=== PATIENT | male | born 1970 | race Caucasian/White ===

== ENCOUNTER 2022-05-24 11:19 | Outpatient (REF) | payer OTHER, SELFPAY ==
[2022-05-24 13:33] LABS: Hematocrit 48.4 % (42.0-52.0); Hemoglobin 16.9 g/dl (14.0-18.0); Mean Corpuscular HGB Conc 34.9 g/dl (31.0-36.0); Mean Corpuscular Hemoglobin 30.8 pg (27.0-33.0); Mean Corpuscular Volume 88.2 fL (80.0-98.0); Mean Platelet Volume 9.4 fL (9.4-12.4); Platelet Count 227 X10*3/uL (160-400); Red Blood Count 5.49 X10*6/uL (4.60-5.80); White Blood Count 5.5 X10*3/uL (4.8-10.8)
[2022-05-24 13:41] LABS: Alanine Aminotransferase 29 U/L (0-40); Albumin Level 4.1 g/dL (3.5-5.0); Alkaline Phosphatase 56 U/L (39-117); Anion Gap 13 (12-20); Aspartate Amino Transferase 24 U/L (5-37); Bilirubin Total 0.2 mg/dL (0.0-1.0); Blood Urea Nitrogen 13 mg/dL (9-16); Calcium 9.2 mg/dL (8.4-10.2); Carbon Dioxide 25 mmol/L (22-29); Chloride 103 mmol/L (96-108); Cholesterol 182 mg/dL; Estimated Glomerular Filt Rate > 60; Glucose Fasting 98 mg/dL (60-99); HDL Cholesterol 48 mg/dL; LDL Cholesterol Calculated 109 mg/dl; Potassium 4.6 mmol/L (3.3-5.1); Sodium 136 mmol/L (135-145); Triglycerides 125 mg/dL
[2022-05-24 14:01] LABS: TSH reflex Free T4 3.02 uIU/mL (0.32-4.0)
== END 2022-05-24 11:20 | disposition home or self-care (01) ==
LOC: HO.WFDLDS 11:19
PROVIDERS: Visit Provider Hospitalist
DX: Z00.00 Encounter for general adult medical examination without abnormal findings (principal)
CPT/HCPCS: 36415; 80053; 80061; 84443; 85027

== ENCOUNTER 2024-03-05 13:37 | Outpatient (AMB) | payer OTHER, SELFPAY ==
--- NOTE | 2024-03-05 14:00 | A.OFFPC_ITS ---
Vital Signs 03/05/24 14:08 Height 5 ft 9 in Weight 228 lb 6 oz BMI 33.7 BP 112/64 Blood Pressure Location Lt brachial Position Sitting Respiration 16 Pulse 83 Pulse Source Pulse Oximeter Temp 98.7 F Temp Source Oral Pulse Oximetry (%) 93 Oxygen Delivery Method Room Air Intake Visit Reasons: Est Care, transfer from [facility] Note: New patient visit. Fatigue often. Route Delivery Manager Required: No Allergies No Known Allergies [No Known Allergies*] Allergy (Verified 03/05/24 14:01) Medication List - Last Reconciled 03/05/24 by Lory Cameron MD levothyroxine 224 mcg (2 x 112 mcg) PO DAILY 90 days lisinopril 5 mg PO DAILY 90 days rosuvastatin 5 mg PO DAILY 90 days Tobacco use date assessed: 03/05/24 Dental Screening Dental Screen Date: 03/05/24 Did you have a dental visit in the last 12 months?: Yes Did you have a dental problem in the last 6 months where you did not have access to dental care?: No Was dental information given to patient?: No (Patient will find new one, his last dentist retired) HPI HPI Comments History of Present Illness Details 53 year old male with a past medical of hypertension, hyperlipidemia, hypothyroid presenting to [facility] care CV: On lisinopril 5 mg daily, rosuvastatin 5mg daily. BPH: Gets up one time nightly to urinate. Not restricting fluids. This has been stable Hypothyroid: On levothyroxine 224mcg daily. Feels more tired for the past year or two. Sleeping ~7 hours. Not gasping arousals. Snores but chronic. Had sleep ctr testing ~10 years ago which was negative for apnea Has not had colon cancer screening. Was scheduled for colonoscopy at one point but cancelled [facility] Surgical History (Updated 03/05/24 @ 14:08 by Lilliana Ayala CMA) H/O: vasectomy Family History (Updated 03/05/24 @ 14:08 by Lilliana Ayala CMA) Brother No problems noted. 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 ) Vision needs: Yes (computer and reading glasses ) Questionnaire PHQ-9 Over the last 2 weeks, how often have you been bothered by any of the following problems? 1. Little interest or pleasure in doing things: several days 2. Feeling down, depressed, or hopeless: not at all 3. Trouble falling or staying asleep, or sleeping too much: several days 4. Feeling tired or having little energy: more than half the days 5. Poor appetite or overeating: not at all 6. Feeling bad about yourself - or that you are a failure or have let yourself or your family down: not at all 7. Trouble concentrating on things, such as reading the newspaper or watching television: not at all 8. Moving or speaking so slowly that other people could have noticed. Or the opposite - being so fidgety or restless that you have been moving around a lot more than usual: not at all 9. Thoughts that you would be better off or of hurting yourself in some way: not at all Total score: 4 Depression Screening Interpretation: Positive (patient endorses sleepiness not depression) Depression Screening Done: Yes 21310 - PHQ-9 Billing: Yes Source: Developed by Drs. Emanuel Rees, Jaja Blanchard, Tang Jones and colleagues, with an educational bonifacio from [email or web address]. Thrive Questionnaire Date Thrive assessed: 03/05/24 I am a: Patient What is your living situation today?: I have a steady place to live Within the past 12 months, did the food you bought not last and you didn't have the money to get more?: Never true Within the past 12 months, did you worry whether your food would run out before you got money to buy more?: Never true Do you have trouble paying for medicines?: No Do you have trouble getting transportation to medical appointments?: No Do you have trouble paying your heating and electricity bill?: No Do you have trouble taking care of your child, family member or friend?: No Do you have trouble with day-to-day activities such as bathing, preparing meals, shopping, managing finances, etc.?: No Are you currently unemployed and looking for a job?: No Are you interested in more education?: No Please select the resources that you would like help with: None Currently or been in a relationship where the following occur: no concerns reported THRIVE Score: 0 SHARI-7 AMB Questionnaire SHARI-7 Date SHARI - 7 assessed: 03/05/24 Feeling nervous, anxious, or on edge: 0 = Not at all Not being able to stop or control worryin = Not at all Worrying too much about different things: 0 = Not at all Trouble relaxin = Not at all Being so restless that it is hard to sit still: 0 = Not at all Becoming easily annoyed or irritable: 0 = Not at all Feeling afraid as if something awful might happen: 0 = Not at all Total SHARI-7 score (0-4 normal; 5-9 mild; 10-14 moderate; 15-21 severe): 0 Source: Developed by Drs. Emanuel Rees, Jaja Blanchard, Tang Jones and colleagues, with an educational bonifacio from [email or web address]. SHARI-7 Assessment Billing SHARI-7 Assessment Tool: SHARI-7 Assessment 75755 Review of Systems Const Details: see HPI Physical exam (Primary Care) Vital Signs: Last Vital Signs Temp 98.7 F 03/05/24 14:08 Pulse 83 03/05/24 14:08 Resp 16 03/05/24 14:08 BP 112/64 03/05/24 14:08 Pulse Ox 93 03/05/24 14:08 Oxygen Delivery Method Room Air 03/05/24 14:08 PHYSICAL EXAM: GENERAL: Alert and oriented x 3. NAD EYES: EOMI. Anicteric. HENT: Moist mucous membranes. Sinus congestion LUNGS: Clear to auscultation bilaterally. CARDIOVASCULAR: Regular rate and rhythm. No murmur appreciated ABDOMEN: Soft, non-tender +bs EXTREMITIES: No edema. Non-tender. SKIN: No rashes or lesions. Warm. NEUROLOGIC: No focal neurological deficits. CN II-XII grossly intact PSYCHIATRIC: Cooperative. Appropriate mood and affect BMI result Body Mass Index 33.7 Tobacco/Smoking Status: Tobacco use Status Tobacco use date assessed 03/05/24 03/05/24 14:12 Patient Tobacco Use Status Current everyday Tobacco 03/05/24 14:12 e-Cigarette/Vaping Use Never Used 03/05/24 14:12 Depression Screening Interpretation: Positive (patient endorses sleepiness not depression) Currently or been in a relationship where the following occur: no concerns reported Assessment and Plan Assessment & Plan (1) Hypothyroidism (acquired): Comment: due for TSH. continue levothyroxine Code(s): E03.9 - Hypothyroidism, unspecified (2) Essential hypertension: Comment: Efforts toward weight loss including decrease caloric intake and regular CV exercise. Low sodium diet Code(s): I10 - Essential (primary) hypertension (3) Fatigue: Code(s): R53.83 - Other fatigue Qualifiers: Fatigue type: unspecified Qualified Code(s): R53.83 - Other fatigue (4) Screening for prostate cancer: Code(s): Z12.5 - Encounter for screening for malignant neoplasm of prostate Plan 53 year old male presenting to [facility] care. past medical, surgical, social and family history reviewed. Orders: Orders Vitamin B12 and Folate Today E03.9 - Hypothyroidism, unspecified, I10 - Essential (primary) hypertension, R53.83 - Other fatigue Prostate Specific Antigen Today Z12.5 - Encounter for screening for malignant neoplasm of prostate TSH reflex Free T4 Today E03.9 - Hypothyroidism, unspecified, I10 - Essential (primary) hypertension, R53.83 - Other fatigue Complete Blood Count Auto Diff Today E03.9 - Hypothyroidism, unspecified, I10 - Essential (primary) hypertension, R53.83 - Other fatigue Comprehensive Met. Panel Today E03.9 - Hypothyroidism, unspecified, I10 - Essential (primary) hypertension, R53.83 - Other fatigue Lipid Panel Today E03.9 - Hypothyroidism, unspecified, I10 - Essential (primary) hypertension, R53.83 - Other fatigue Lyme IgG/IgM w/reflex to WB Today E03.9 - Hypothyroidism, unspecified, I10 - Essential (primary) hypertension, R53.83 - Other fatigue Referrals Cologuard Test Z12.11 - Encounter for screening for malignant neoplasm of colon, Z12.12 - Encounter for screening for malignant neoplasm of rectum, Z12.5 - Encounter for screening for malignant neoplasm of prostate Coding Level of Care Code Est Pt Level 4 (15189) Complex EM visit Add On G2211 Diagnoses Hypothyroidism (acquired) E03.9 Essential hypertension I10 Fatigue, unspecified type R53.83 Fatigue type: unspecified Screening for prostate cancer Z12.5 Additional Codes SHARI-7 Assessment Billing - SHARI-7 Assessment Tool: SHARI-7 Assessment 99177 ([id number])
[2024-03-05 14:08] VITALS: BP 112/64; PULSE 83; RESP 16; TEMP 37.1; O2SAT 93; BMI 33.7
== END 2024-03-05 14:54 | disposition home or self-care (01) ==
PROVIDERS: PCP Hospitalist; Visit Provider Internal Medicine
DX: E03.9 Hypothyroidism, unspecified (principal); I10 Essential (primary) hypertension; R53.83 Other fatigue; Z12.5 Encounter for screening for malignant neoplasm of prostate
CPT/HCPCS: 99214; G2211

== ENCOUNTER 2024-05-30 07:30 | Outpatient (REF) | payer OTHER, SELFPAY ==
[2024-05-30 11:57] LABS: MANUAL DIFF FLAG NO
[2024-05-30 12:02] LABS: Basophils Absolute Auto 0.1 X10*3/uL (0.0-0.2); Basophils Percent Auto 1.2 % (0-2); Eosinophils Absolute Auto 0.2 X10*3/uL (0.0-0.4); Eosinophils Percent Auto 2.8 % (0-4); Hematocrit 51.3 % (42.0-52.0); Hemoglobin 17.3 g/dl (14.0-18.0); Imm Gran Abs Auto 0.02 X10*3/uL (0.00-0.03); Imm Gran Pct Auto 0.4 % (0.0-0.4); Lymphocytes Absolute Auto 1.9 X10*3/uL (1.2-4.9); Lymphocytes Percent Auto 32.5 % (20-40); Mean Corpuscular HGB Conc 33.7 g/dl (31.0-36.0); Mean Corpuscular Hemoglobin 30.1 pg (27.0-33.0); Mean Corpuscular Volume 89.4 fL (80.0-98.0); Mean Platelet Volume 9.3 fL (9.4-12.4); Monocytes Absolute Auto 0.8 X10*3/uL (0.1-1.2); Monocytes Percent Auto 13.5 % (2-11); Neutrophils Absolute Auto 2.8 x10*3/uL (2.0-8.3); Neutrophils Percent Auto 49.6 % (45-73); Platelet Count 240 X10*3/uL (160-400); Red Blood Count 5.74 X10*6/uL (4.60-5.80); Red Cell Distribution Width 13.4 % (11.0-16.0); White Blood Count 5.7 X10*3/uL (4.8-10.8)
[2024-05-30 12:39] LABS: Alanine Aminotransferase 27 U/L (0-40); Alkaline Phosphatase 52 U/L (39-117); Anion Gap 14 (12-20); Aspartate Amino Transferase 28 U/L (5-37); Bilirubin Total 0.4 mg/dL (0.0-1.0); Blood Urea Nitrogen 17 mg/dL (9-16); Calcium 9.5 mg/dL (8.4-10.2); Carbon Dioxide 25 mmol/L (22-29); Chloride 106 mmol/L (96-108); Cholesterol 179 mg/dL (<200); Estimated Glomerular Filt Rate > 60; Glucose Random 107 mg/dL (60-115); HDL Cholesterol 42 mg/dL (>40); LDL Cholesterol Calculated 101 mg/dL (<100); Potassium 4.2 mmol/L (3.3-5.1); Sodium 141 mmol/L (135-145); Total Protein 7.1 g/dL (6.5-8.0); Triglycerides 180 mg/dL (<150)
[2024-05-30 12:40] LABS: TSH reflex Free T4 16.51 uIU/mL (0.32-4.0)
[2024-05-30 12:59] LABS: Folate 9.9 ng/mL (> or = 4.0); Prostate Specific Antigen 0.46 ng/mL (<0.05-4.0); Vitamin B12 533 pg/mL (200-900)
[2024-05-30 13:29] LABS: Free T4 (Free Thyroxine) 1.16 ng/dL (0.71-1.85)
[2024-05-31 17:38] LABS: Lyme Abs Screen <0.90 index
== END 2024-05-30 07:31 | disposition home or self-care (01) ==
LOC: HO.WFDLDS 07:30
PROVIDERS: Visit Provider Internal Medicine
DX: E03.9 Hypothyroidism, unspecified (principal); I10 Essential (primary) hypertension; R53.83 Other fatigue; Z12.5 Encounter for screening for malignant neoplasm of prostate
CPT/HCPCS: 36415; 80053; 80061; 82607; 82746; 84153; 84439; 84443; 85025; 86617; 86618

== ENCOUNTER 2024-06-08 09:33 | Outpatient (AMB) | payer OTHER, SELFPAY ==
--- NOTE | 2024-06-08 09:27 | MHC.PC.OV ---
Intake Visit Reasons: Lab review Allergies No Known Allergies [No Known Allergies*] Allergy (Verified 03/05/24 14:01) Tobacco use date assessed: 03/05/24 Dental Screening Dental Screen Date: 03/05/24 HPI HPI Comments History of Present Illness Details 53 year old male with a past medical of hypertension, hyperlipidemia, hypothyroid presenting to follow up on labs Labs notable for under active thyroid on current levothyroxine dosing-currently taking 224mcg daily. He misses a few doses per month. He has been taking multivitamins including B vitamins. Feels more tired for the past year or two. Sleeping ~7 hours. Not gasping arousals. Snores but chronic. Had sleep ctr testing ~10 years ago which was negative for apnea CV: On lisinopril 5 mg daily, rosuvastatin 5mg daily. BPH: Gets up one time nightly to urinate. Not restricting fluids. This has been stable. Has not had colon cancer screening. Was scheduled for colonoscopy at one point but cancelled [facility] Surgical History (Updated 03/05/24 @ 14:08 by Lilliana Ayala CMA) H/O: vasectomy Family History (Updated 03/05/24 @ 14:08 by Lilliana Ayala CMA) Brother No problems noted. 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 ) Vision needs: Yes (computer and reading glasses ) Questionnaire Thrive Questionnaire Date Thrive assessed: 03/05/24 SHARI-7 AMB Questionnaire SHARI-7 Date SHARI - 7 assessed: 03/05/24 Source: Developed by Drs. Emanuel Rees, Jaja Blanchard, Tang Jones and colleagues, with an educational bonifacio from [employer]. Physical exam (Primary Care) Tobacco/Smoking Status: Tobacco use Status Tobacco use date assessed 03/05/24 06/08/24 09:28 Patient Tobacco Use Status Current everyday Tobacco 06/08/24 09:28 e-Cigarette/Vaping Use Never Used 06/08/24 09:28 Thrive Assessment: Date of Thrive Assessment Date Thrive assessed 03/05/24 06/08/24 09:28 Telehealth Telehealth Telehealth Platform: Telephone Location of provider rendering services: practice address Location of patient: address on file Patient Identification confirmed using: Name, : Yes Telehealth method: voice only Patient verbally consented to treatment: Yes Patient verbally consented to billing insurance company: Yes Patient informed of any privacy concerns related to visit: Yes Minutes spent on Phone/Video with Pt.: 25 Assessment and Plan Assessment & Plan (1) Hypothyroidism (acquired): Comment: due for TSH. continue levothyroxine Code(s): E03.9 - Hypothyroidism, unspecified Plan: Increase levothyroxine to 250mcg daily. Stop multivitamins 3 days prior to testing (2) Essential hypertension: Comment: Efforts toward weight loss including decrease caloric intake and regular CV exercise. Low sodium diet Code(s): I10 - Essential (primary) hypertension Orders: Orders TSH reflex Free T4 06/08/24 E03.9 - Hypothyroidism, unspecified Medications: New levothyroxine 250 mcg (2 x 125 mcg) PO DAILY 180 tabs 3RF 90 days Discontinued levothyroxine Discontinued Reason: Doctor's Order 224 mcg (2 x 112 mcg) PO DAILY 90 days 180 tabs 3RF Coding Level of Care Code Tele Est Pt Level 3 (36642) Diagnoses Hypothyroidism (acquired) E03.9 Essential hypertension I10
== END 2024-06-08 10:14 | disposition home or self-care (01) ==
LOC: HO.HMGFM 09:33
PROVIDERS: PCP Hospitalist; Visit Provider Internal Medicine
DX: E03.9 Hypothyroidism, unspecified (principal); I10 Essential (primary) hypertension
CPT/HCPCS: 99213

== ENCOUNTER 2024-08-13 09:51 | Outpatient (AMB) | payer OTHER, SELFPAY ==
[2024-08-13 10:09] VITALS: BP 112/68; PULSE 86; RESP 16; O2SAT 96; BMI 34.3
--- NOTE | 2024-08-13 10:09 | MHC.PC.OV ---
Vital Signs 08/13/24 10:09 Height 5 ft 9 in Weight 232 lb 2 oz BMI 34.3 BP 112/68 Blood Pressure Location Rt brachial Position Sitting Respiration 16 Pulse 86 Pulse Source Pulse Oximeter Pulse Oximetry (%) 96 Oxygen Delivery Method Room Air Intake Visit Reasons: 6 mth Intake Note: Six month follow up Shoe Salesperson Required: No Allergies No Known Allergies [No Known Allergies*] Allergy (Verified 08/13/24 10:09) Medication List - Last Reconciled 08/13/24 by Lory Cameron MD levothyroxine 250 mcg (2 x 125 mcg) PO DAILY 90 days lisinopril 5 mg PO DAILY 90 days rosuvastatin 5 mg PO DAILY 90 days Tobacco use date assessed: 03/05/24 Dental Screening Dental Screen Date: 03/05/24 HPI HPI Comments History of Present Illness Details 54 year old male with a past medical of hypertension, hyperlipidemia, hypothyroid presenting for follow up He had cologuard back in March. Office never received result, called today. It was positive. Patient was aware abnormal but let it go. No GI symptoms. Last TSH elevated May taking 224mcg daily. He was missing a few doses per month, now is compliant with medication. He has been taking multivitamins including B vitamins. Feeling overall well. Feels more tired for the past year or two. Sleeping ~7 hours. Not gasping arousals. Snores but chronic. Had sleep ctr testing ~10 years ago which was negative for apnea CV: On lisinopril 5 mg daily, rosuvastatin 5mg daily. BP has been really well controlled. He denies lightheadedness. BPH: Gets up one time nightly to urinate. stable Lots of financial stress, relationship stress at home Referred for colonoscopy today [facility] Surgical History H/O: vasectomy Family History Brother No problems noted. 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 ) Vision needs: Yes (computer and reading glasses ) Questionnaire PHQ-9 Over the last 2 weeks, how often have you been bothered by any of the following problems? 1. Little interest or pleasure in doing things: several days 2. Feeling down, depressed, or hopeless: several days 3. Trouble falling or staying asleep, or sleeping too much: several days 4. Feeling tired or having little energy: not at all 5. Poor appetite or overeating: not at all 6. Feeling bad about yourself - or that you are a failure or have let yourself or your family down: several days 7. Trouble concentrating on things, such as reading the newspaper or watching television: not at all 8. Moving or speaking so slowly that other people could have noticed. Or the opposite - being so fidgety or restless that you have been moving around a lot more than usual: not at all 9. Thoughts that you would be better off or of hurting yourself in some way: not at all Total score: 4 Depression Screening Interpretation: Negative (neg) Depression Screening Done: Yes Source: Developed by Drs. Emanuel Rees, Jaja Blanchard, Tang Jones and colleagues, with an educational bonifacio from [employer]. Thrive Questionnaire Date Thrive assessed: 08/06/24 I am a: Patient What is your living situation today?: I have a steady place to live Within the past 12 months, did the food you bought not last and you didn't have the money to get more?: Never true Within the past 12 months, did you worry whether your food would run out before you got money to buy more?: Never true Do you have trouble paying for medicines?: No Do you have trouble getting transportation to medical appointments?: No Do you have trouble paying your heating and electricity bill?: No Do you have trouble taking care of your child, family member or friend?: No Do you have trouble with day-to-day activities such as bathing, preparing meals, shopping, managing finances, etc.?: No Are you currently unemployed and looking for a job?: No Are you interested in more education?: No Please select the resources that you would like help with: None Currently or been in a relationship where the following occur: No concerns reported THRIVE Score: 0 AUDIT C Alcohol Use Questionnaire (AUDIT-C) 1. How often do you have a drink containing alcohol?: 2-3 times a week 2. How many drinks containing alcohol do you have on a typical day when you are drinking?: 5 or 6 3. How often do you have six or more drinks on one occasion?: Weekly Total Score: 8 SHARI-7 AMB Questionnaire SHARI-7 Date SHARI - 7 assessed: 03/05/24 Feeling nervous, anxious, or on edge: 1 = Several days Not being able to stop or control worryin = Not at all Worrying too much about different things: 1 = Several days Trouble relaxin = Several days Being so restless that it is hard to sit still: 0 = Not at all Becoming easily annoyed or irritable: 1 = Several days Feeling afraid as if something awful might happen: 1 = Several days Total SHARI-7 score (0-4 normal; 5-9 mild; 10-14 moderate; 15-21 severe): 5 Source: Developed by Drs. Emanuel Rees, Jaja Blanchard, Tang Jones and colleagues, with an educational bonifacio from [employer]. Physical exam (Primary Care) Vital Signs: Last Vital Signs Pulse 86 08/13/24 10:09 Resp 16 08/13/24 10:09 BP 112/68 08/13/24 10:09 Pulse Ox 96 08/13/24 10:09 Oxygen Delivery Method Room Air 08/13/24 10:09 BMI result Body Mass Index 34.3 Tobacco/Smoking Status: Tobacco use Status Tobacco use date assessed 03/05/24 08/13/24 10:12 Patient Tobacco Use Status Current everyday Tobacco 08/13/24 10:12 e-Cigarette/Vaping Use Never Used 08/13/24 10:12 PHQ-9: PHQ-9 Score PHQ-9: Total score 4 08/13/24 10:12 Depression Screening Interpretation: Negative (neg) Thrive Assessment: Date of Thrive Assessment Date Thrive assessed 08/06/24 08/13/24 10:12 Currently or been in a relationship where the following occur: No concerns reported Coding Level of Care Code Est Pt Level 4 (77137) Complex EM visit Add On G2211 Diagnoses Essential hypertension I10 Hypothyroidism (acquired) E03.9 Assessment & Plan Assessment & Plan (1) Essential hypertension: Code(s): I10 - Essential (primary) hypertension Category: Medical Plan: Well controlled. Efforts toward weight loss including decrease caloric intake and regular CV exercise. Low sodium diet Can go off medications for one month prior to visit if he wants to assess the need for ongoing medication (2) Hypothyroidism (acquired): Code(s): E03.9 - Hypothyroidism, unspecified Category: Medical Plan: due for TSH today. Will adjust dose and needs refill Plan Abnormal cologuard-referred for colonoscopy Orders: Referrals Open Access Screening Colonoscopy Referral Z12.11 - Encounter for screening for malignant neoplasm of colon, Z12.12 - Encounter for screening for malignant neoplasm of rectum
== END 2024-08-13 10:50 | disposition home or self-care (01) ==
PROVIDERS: PCP Hospitalist; Visit Provider Internal Medicine
DX: I10 Essential (primary) hypertension (principal); E03.9 Hypothyroidism, unspecified

== ENCOUNTER → 2024-08-13 09:51 | Outpatient (BNVA) | payer OTHER, SELFPAY | PROVIDERS: PCP Hospitalist; Visit Provider Internal Medicine ==

== ENCOUNTER 2024-08-13 09:54 | Outpatient (REF) | payer OTHER, SELFPAY ==
[2024-08-13 12:12] LABS: TSH reflex Free T4 0.35 uIU/mL (0.32-4.0)
== END 2024-08-13 09:55 | disposition home or self-care (01) ==
LOC: HO.WFDLDS 09:54
PROVIDERS: Visit Provider Internal Medicine
DX: E03.9 Hypothyroidism, unspecified (principal)
CPT/HCPCS: 36415; 84443